=== PATIENT | female | born 1980 ===

== ENCOUNTER 2017-10-16 20:15 | Inpatient (IN) | payer SELFPAY ==
[~2017-10-16] VITALS: Ht 160 cm; Wt 70.0 kg
[2017-10-16 20:43] LABS: BASOPHILS ABSOLUTE AUTO 0.01 K/mm3 (0.00-0.23); BASOPHILS PERCENT AUTO 0 % (0-2); EOSINOPHILS ABSOLUTE AUTO 0.01 K/mm3 (0.00-0.68); EOSINOPHILS PERCENT AUTO 0 % (0-6); Hematocrit 36.3 % (33.0-51.0); Hemoglobin 12.4 g/dL (11.5-16.0); IMMATURE GRAN ABSOLUTE AUTO 0.05 K/mm3 (0.00-0.10); IMMATURE GRAN PERCENT AUTO 1 % (0-1); LYMPHOCYTES ABSOLUTE AUTO 1.77 K/mm3 (0.84-5.20); LYMPHOCYTES PERCENT AUTO 21 % (21-46); MONOCYTES ABSOLUTE AUTO 0.41 K/mm3 (0.16-1.47); MONOCYTES PERCENT AUTO 5 % (4-13); Mean Corpuscular HGB 30.7 pg (26.0-34.0); Mean Corpuscular HGB Conc 34.2 g/dL (31.5-36.5); Mean Corpuscular Volume 90 fL (80-100); Mean Platelet Volume 11.6 fL (9.1-12.4); NEUTROPHILS ABSOLUTE AUTO 6.29 K/mm3 (1.96-9.15); NEUTROPHILS PERCENT AUTO 74 % (41-73); Platelet Count 265 K/mm3 (150-400); RDW Coefficient Variation 13.2 % (11.7-14.2); RDW Standard Deviation 43.2 fL (35.1-46.3); Red Blood Cell Count 4.04 M/mm3 (3.80-5.20); White Blood Cell Count 8.54 K/mm3 (4.00-11.30)
[2017-10-18 05:32] LABS: Hematocrit 29.3 % (33.0-51.0); Hemoglobin 9.9 g/dL (11.5-16.0); Mean Corpuscular HGB 30.8 pg (26.0-34.0); Mean Corpuscular HGB Conc 33.8 g/dL (31.5-36.5); Mean Corpuscular Volume 91 fL (80-100); Mean Platelet Volume 11.2 fL (9.1-12.4); Platelet Count 225 K/mm3 (150-400); RDW Coefficient Variation 13.4 % (11.7-14.2); RDW Standard Deviation 44.2 fL (35.1-46.3); Red Blood Cell Count 3.21 M/mm3 (3.80-5.20); White Blood Cell Count 11.26 K/mm3 (4.00-11.30)
[2017-10-18] MEDS ORDERED: ACET325 PO (15:19)
[2017-10-18] MEDS ORDERED: IBUP800 PO (15:19)
== END 2017-10-18 16:05 | disposition home or self-care (01) | DRG 775 ==
LOC: BC 20:15
PROVIDERS: Obstetrics & Gynecology
PROC: 10E0XZZ Delivery of Products of Conception, External Approach (ICD-10-PCS; principal; 2017-10-17)
DX: O42.013 Preterm premature rupture of membranes, onset of labor within 24 hours of rupture, third trimester (principal); O32.8XX0 Maternal care for other malpresentation of fetus, not applicable or unspecified; Z3A.23 23 weeks gestation of pregnancy; Z37.0 Single live birth
CPT/HCPCS: 31500; 36415; 51702; 76805; 85025; 85027; 86592; 86762; 86850; 86900; 86901; 87340; 87389; 96372; J0690; J0702; J1885; J2210; J2405; J2590; J3010; J7120

== ENCOUNTER 2017-10-21 16:28 | Emergency (ER) | payer SELFPAY ==
[~2017-10-21] VITALS: Ht 157.5 cm; Wt 54.4 kg
[~2017-10-21 16:28] MED LIST: ACET325 PO; IBUP800 PO
[2017-10-21] MEDS ORDERED: Amoxicillin875 MG PO (17:05)
[2017-10-21] MEDS ORDERED: Percocet 10-321 EACH PO (17:05)
== END 2017-10-21 17:25 | disposition home or self-care (01) ==
LOC: ER 16:28
DX: N61.0 Mastitis without abscess (principal)
CPT/HCPCS: 99283